=== PATIENT | male | born 1945 | race Caucasian/White ===

== ENCOUNTER → 2020-01-20 | Outpatient (CLI) | payer OTHER, BC ==
[~2020-01-20] VITALS: Ht 175.3 cm; Wt 83.5 kg
[~2020-01-20] MED LIST: ALTACE 1.25 M1.25 MG PO; ASA81BEC PO; CARVEDILOL3.125 MG PO; LEVO-T75 MCG PO; LEXAPRO 10 MG T10 M1 PO; LIPITOR40 MG PO; NOVOLIN N100 UNIT/1 SUBQ; NOVOLIN R100 UNIT/1 SUBQ; OMEPRAZOLE40 MG PO; SYMBICORT160 MCG/4. INH
--- NOTE | ~2020-01-20 | P ---
[facility] [place] [address] PROCEDURE REPORT Name: CHRISTINE GARCIA Room #: REG [facility]#: [id number] Admission: 01/20/20 Attend Phys: David Martin Discharge: Date of : 43 Report #: [id number] THIS REPORT FOR: cc: RYANNE - Family physician unknown RYANNE - Family physician unknown David Goldstein MD ~ CC: David PEARL unknown DATE OF SERVICE: 01/20/2020 PROCEDURE PERFORMED: Colonoscopy with APC cautery. HISTORY OF PRESENT ILLNESS: The patient is a 74-year-old male who reports 2 episodes of bright red blood over the last few months. The patient has a history of prostate cancer, status post radiation therapy. No previous history of GI bleed. Last colonoscopy was 10 years ago and was normal. DESCRIPTION OF PROCEDURE: The risks and benefits of the procedure were explained to the patient, those risks including but not limited to bleeding, perforation and the risk of sedation. He understood these risks and gave informed consent. Sedation was given using propofol per anesthesia. Next, a digital rectal exam was initially performed, which was normal. Next, using a standard Olympus colonoscope, the scope was placed in the patient's anus and advanced under direct vision to the cecum. The overall prep was good. The cecum and ileocecal valve were normal in appearance. Ascending, transverse, descending colon were normal. Multiple diverticula were noted in the sigmoid colon, otherwise normal. 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 There was no active bleeding. I then proceeded with treating these areas with APC cautery. No evidence of bleeding was noted after treatment. Small internal hemorrhoids were also noted. The scope was then withdrawn and the procedure terminated. The patient tolerated the procedure well. IMPRESSION: 1. Sigmoid diverticulosis. 2. 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 3. Small internal hemorrhoids. RECOMMENDATIONS: 1. Observe the patient post-procedure. 2. If bleeding recurs, can repeat APC cautery at that time. [facility] [address] [place] [address] PROCEDURE REPORT Name: GARCIACHRISTINE Room #: [facility]#: [id number] Admission: 01/20/20 Attend Phys: David Martin Discharge: Date of : 43 Report #: [id number] Thank you for allowing me to participate in his care. By: [id number] David Goldstein MD /nt
== END | disposition home or self-care (01) ==
LOC: GI 07:40
DX: K62.7 Radiation proctitis (principal); K57.30 Diverticulosis of large intestine without perforation or abscess without bleeding; K64.8 Other hemorrhoids; I10 Essential (primary) hypertension; E11.9 Type 2 diabetes mellitus without complications; J43.9 Emphysema, unspecified; E78.00 Pure hypercholesterolemia, unspecified; I25.2 Old myocardial infarction; Z98.890 Other specified postprocedural states; Z79.899 Other long term (current) drug therapy; Z85.46 Personal history of malignant neoplasm of prostate; Z85.828 Personal history of other malignant neoplasm of skin; Z85.01 Personal history of malignant neoplasm of esophagus; Z79.4 Long term (current) use of insulin; Z95.810 Presence of automatic (implantable) cardiac defibrillator; Z79.82 Long term (current) use of aspirin; Z11.59 Encounter for screening for other viral diseases
CPT/HCPCS: 62110; 62900